=== PATIENT | male | born 1955 | race African-American/Black ===

== ENCOUNTER 2017-04-13 12:02 | Inpatient (IN) | payer MEDICARE, OTHER ==
[~2017-04-13] VITALS: Ht 170.2 cm; Wt 64.8 kg
[2017-04-13] MEDS ORDERED: ONDANSETRON 2MG/ML, 2ML ONE (12:46)
[2017-04-13] MEDS ORDERED: MORPHINE SULFATE 4 MG/ML, 1ML ONE (12:46)
[2017-04-13] MEDS ORDERED: SODIUM CHLORIDE 0.9% 1,000ML IVBOLUS ONE (13:00)
[2017-04-13] MEDS ORDERED: ONDANSETRON 2MG/ML, 2ML IVPush ONE (13:00)
[2017-04-13] MEDS ORDERED: MORPHINE SULFATE 4 MG/ML, 1ML IVPush PRN (13:00)
[2017-04-13] MEDS ORDERED: SODIUM CHLORIDE FLUSH 10ML SYR IVF ONE (13:00)
[2017-04-13 13:05] LABS: HEMATOCRIT 40.8 % (39.2-51.8); HEMOGLOBIN 12.9 g/dL (13.7-18.0); WHITE BLOOD COUNT 8.7 x10^3/uL (3.4-10)
[2017-04-13] MEDS ORDERED: FAMO-79 PO (13:10)
[2017-04-13] MEDS ORDERED: METO25TA35 PO (13:10)
[2017-04-13] MEDS ORDERED: NAPR-874 PO (13:10)
[2017-04-13] MEDS ORDERED: GLIP5TAB10 PO (13:10)
[2017-04-13] MEDS ORDERED: LOSA25TA5 PO (13:10)
[2017-04-13] MEDS ORDERED: OMEG1CAP34 PO (13:10)
[2017-04-13] MEDS ORDERED: METF500T4 PO (13:10)
[2017-04-13] MEDS ORDERED: INSU100V5 SQ-INSULIN (13:10)
[2017-04-13 13:19] LABS: BLOOD UREA NITROGEN 19 mg/dL (7-18)
[2017-04-13 13:22] LABS: IS PT STATUS REG ER OR PRE ER? YES
[2017-04-13 16:29] VITALS: BP 107/69
[2017-04-13 16:30] VITALS: BP 107/69
[2017-04-13] MEDS ORDERED: POLYETHYLENE GLYCOL 17 GM PACKET PO PRN (17:00)
[2017-04-13] MEDS ORDERED: DEXTROSE 4 GM TAB.CHEW PO PRN (17:00)
[2017-04-13] MEDS ORDERED: DEXTROSE 50%, 50ML SYRINGE IVPush PRN (17:00)
[2017-04-13] MEDS ORDERED: morphine SULFATE 10 MG/ML, 1ML IVPush PRN (17:00)
[2017-04-13] MEDS ORDERED: GLUCAGON 1 MG IM PRN (17:00)
[2017-04-13] MEDS ORDERED: BISACODYL 10 MG SUPP PR PRN (17:00)
[2017-04-13] MEDS: INSULIN ASPART 100 UNITS/ML, PEN SQ-INSULIN SCH ×2 (17:00→21:16)
[2017-04-13] MEDS ORDERED: ACETAMINOPHEN 325 MG TABLET PO PRN (17:00)
[2017-04-13] MEDS ORDERED: DOCUSATE 100 MG CAPSULE PO PRN (17:00)
[2017-04-13] MEDS ORDERED: NITROGLYCERIN 0.4 MG BOTTLE (25 TABS) SL PRN (17:00)
[2017-04-13] MEDS: ENOXAPARIN 40 MG/0.4 ML SQ SCH (17:27)
[2017-04-13 17:46] LABS: IS PT STATUS REG ER OR PRE ER? NO
[2017-04-13 18:39] VITALS: BP 95/51
[2017-04-13] MEDS: SODIUM CHLORIDE FLUSH 10ML SYR IVF SCH (21:16)
[2017-04-13 23:50] LABS: IS PT STATUS REG ER OR PRE ER? NO
[2017-04-14 01:04] VITALS: BP 106/59
[2017-04-14 06:18] LABS: HEMATOCRIT 37.8 % (39.2-51.8); HEMOGLOBIN 11.9 g/dL (13.7-18.0); WHITE BLOOD COUNT 7.3 x10^3/uL (3.4-10)
[2017-04-14] MEDS: ASPIRIN 325 MG TABLET EC PO SCH (06:20)
[2017-04-14 06:32] LABS: BLOOD UREA NITROGEN 18 mg/dL (7-18)
[2017-04-14 06:38] LABS: IS PT STATUS REG ER OR PRE ER? NO
[2017-04-14 06:46] LABS: ASPARTATE AMINO TRANSFERASE 20 U/L (15-37)
[2017-04-14 06:55] VITALS: BP 103/64
[2017-04-14] MEDS: INSULIN ASPART 100 UNITS/ML, PEN SQ-INSULIN SCH ×4 (07:00→21:31)
[2017-04-14] MEDS: LOSARTAN 25MG TABLET PO SCH (08:31)
[2017-04-14] MEDS: SODIUM CHLORIDE FLUSH 10ML SYR IVF SCH ×2 (08:31→21:30)
[2017-04-14] MEDS: FAMOTIDINE 20 MG TABLET PO SCH (08:31)
[2017-04-14 08:33] VITALS: BP 107/67
[2017-04-14 12:30] VITALS: BP 100/61
[2017-04-14 14:02] VITALS: BP_SYST 94; BP_SYST 97; BP_SYST 98; BP_DIAS 60; BP_DIAS 61; BP_DIAS 64
[2017-04-14] MEDS: ENOXAPARIN 40 MG/0.4 ML SQ SCH (17:46)
[2017-04-14 19:55] VITALS: BP 104/59
[2017-04-15 02:00] VITALS: BP 114/72
[2017-04-15] MEDS: ASPIRIN 325 MG TABLET EC PO SCH (04:14)
[2017-04-15 06:27] LABS: BLOOD UREA NITROGEN 15 mg/dL (7-18)
[2017-04-15] MEDS: INSULIN ASPART 100 UNITS/ML, PEN SQ-INSULIN SCH ×4 (07:00→20:39)
[2017-04-15] MEDS: SODIUM CHLORIDE FLUSH 10ML SYR IVF SCH ×2 (08:18→20:30)
[2017-04-15] MEDS: LOSARTAN 25MG TABLET PO SCH (08:18)
[2017-04-15] MEDS: FAMOTIDINE 20 MG TABLET PO SCH (08:18)
[2017-04-15 08:34] VITALS: BP 110/67
[2017-04-15 13:07] VITALS: BP 106/70
[2017-04-15 15:51] VITALS: BP_SYST 104; BP_SYST 105; BP_SYST 108; BP_DIAS 68
[2017-04-15] MEDS: ENOXAPARIN 40 MG/0.4 ML SQ SCH (17:51)
[2017-04-15 19:58] VITALS: BP 122/72
[2017-04-16 00:41] VITALS: BP 112/68
[2017-04-16] MEDS: ASPIRIN 325 MG TABLET EC PO SCH (05:17)
[2017-04-16] MEDS: INSULIN ASPART 100 UNITS/ML, PEN SQ-INSULIN SCH (07:00)
[2017-04-16 07:43] VITALS: BP 124/62
[2017-04-16] MEDS ORDERED: METO25TA35 PO (08:31)
[2017-04-16] MEDS ORDERED: ASPI-496 PO (08:38)
[2017-04-16] MEDS: LOSARTAN 25MG TABLET PO SCH (08:50)
[2017-04-16] MEDS: FAMOTIDINE 20 MG TABLET PO SCH (08:50)
[2017-04-16] MEDS: SODIUM CHLORIDE FLUSH 10ML SYR IVF SCH (08:50)
== END 2017-04-16 11:20 | disposition home or self-care (01) | DRG 74 ==
LOC: ED 14:42 → EDIP 14:43 → ED 14:52 → 5SO 16:15 → DCLOUNGE 04-16 10:57
PROVIDERS: ADMIT Internal Medicine; ATTEND Internal Medicine
DX: G90.8 Other disorders of autonomic nervous system (principal); E11.65 Type 2 diabetes mellitus with hyperglycemia; I10 Essential (primary) hypertension; E78.00 Pure hypercholesterolemia, unspecified; G89.29 Other chronic pain; E78.5 Hyperlipidemia, unspecified; I25.10 Atherosclerotic heart disease of native coronary artery without angina pectoris; K21.9 Gastro-esophageal reflux disease without esophagitis; Z66 Do not resuscitate; I25.2 Old myocardial infarction; Z79.4 Long term (current) use of insulin; Z82.3 Family history of stroke; Z79.899 Other long term (current) drug therapy; Z79.84 Long term (current) use of oral hypoglycemic drugs; Z95.5 Presence of coronary angioplasty implant and graft
CPT/HCPCS: 36415; 71010; 80048; 80053; 81003; 82040; 82962; 83735; 84100; 84439; 84443; 84484; 85025; 85379; 85610; 85730; 93005; 93017; 93306; 93880; 96374; J1650; J1815; J2405; J7030